=== PATIENT | male | born 1955 | race Caucasian/White ===

== ENCOUNTER 2018-04-06 05:18 | Day surgery (SDC) | payer BC ==
[~2018-04-06] VITALS: Ht 175.3 cm; Wt 90.3 kg
--- NOTE | ~2018-04-06 | PATH ---
[facility] [place] [address] PATHOLOGY RPT PROCEDURE Name: HOOD SAUCEDO Parisa Room #: DEP [facility]..#: [id number] Admission: 04/06/18 Date of : 51 Discharge: 04/06/18 Report #: [id number] Path Case #: [id number] [facility] Accession Number: [id number] . 01 Material submitted: . BASAL CELL CARCINOMA LT NASAL VESTIBULE-FS . 01 Clinical history: . BCCA nose . 02 Diagnosis: Skin, left nasal vestibule, biopsy: - Previous biopsy site changes. All surgical resection margins are free without any evidence of atypia or malignancy. (SHA:andrea; 04/09/2018) QMS/04/09/2018 . 02 Electronically signed: . Jules Sterling MD, Pathologist NPI- [id number] . 01 Gross description: . Specimen received fresh labeled "left nasal vestibule basal cell carcinoma" consists of a ch piece of tissue measuring 0.3 x 0.2 x 0.2 cm. It is oriented by Dr. Davey as superior, inferior, medial and lateral. The superior margin is inked red, the inferior margin is inked yellow, the medial margin is inked blue, the lateral margin is inked green and the deep is black. The specimen is serially sectioned and submitted in cassette A1. ([facility] 04/06/2018) . . FROZEN SECTION: FSA1: Skin left nasal vestibule: - Margins free. - These findings are discussed with Dr. Davey and a written report was placed in the patient's chart. ([facility] 04/06/2018) . Frozen section performed at [facility], [address] [place] [address] , [place] [address]. /QTP . 02 Pathologist provided ICD-10: C44.311 . 02 CPT . [address] [address] PATHOLOGY RPT PROCEDURE Name: HODO SAUCEDO Parisa Room #: DEP [facility] Ela#: [id number] Admission: 04/06/18 Date of : 51 Discharge: 04/06/18 Report #: [id number] Path Case #: [id number] Specimen Comment: A courtesy copy of this report has been sent to Specimen Comment: [phone], . Specimen Comment: Report sent to / DR COLLIER Performed at: [address] [facility] [address], [place], [place] [id number] MD Kan Kilgore MD Phone: [phone] Performed at: [address] [id number] MD Camila Galvan MD Phone: [phone]
--- NOTE | ~2018-04-06 | O ---
[facility] [place] [address] [place] [address] OPERATIVE REPORT Name: HOOD SAUCEDO Room #: 150-3 [facility]..#: [id number] Admission: 04/06/18 Attend Phys: Alexis Davey MD Discharge: Date of : 51 Report #: [id number] THIS REPORT FOR: //name// CC: Rafa Davey DATE OF SERVICE: 04/06/2018 PREOPERATIVE DIAGNOSIS: Left nasal vestibule basal cell carcinoma. POSTOPERATIVE DIAGNOSIS: Left nasal vestibule basal cell carcinoma. PROCEDURE: Reexcision of left basal cell carcinoma. SURGEON: Alexis Davey M.D. ANESTHESIA: General LMA with local anesthetic. FINDINGS: A very small scar was located on the floor of the left nasal vestibule extending up laterally. No visible changes to the cutaneous tissue. TECHNIQUE: After obtaining consent and identifying the area with the patient and preoperatively marking it with an ink pen, he was brought back to operating suite, appropriate time out was performed. General LMA anesthesia was obtained. The nose was prepped with Betadine with cotton swabs. I trimmed the nasal hairs back to the skin lining. A 1 mL of 1% Xylocaine and 1:100,000 epinephrine was injected subcutaneously around the anticipated area of the excision. I then made an elliptical incision around the scarred area being generous in the excisional area down to the subcutaneous layer. This was then sharply removed with scissors. The specimen was oriented for pathology. Frozen section returned negative for any cancer and he had negative margins. The area was then undermined slightly. I cauterized the base for hemostasis. I then closed the area with 2 simple interrupted 5-0 chromic sutures. Antibiotic ointment was applied. He was allowed to awaken from anesthesia and taken to recovery in stable condition. ESTIMATED BLOOD LOSS: Less than 5 mL. By: [id number] Alexis Davey MD /nt
[~2018-04-06 05:18] MED LIST: COQ-10100 MG PO; FISH OIL 1,2001 EAC4 PO; LISINOPRIL10 MG PO; NEURONTIN 300300 M1 PO; VITAMIN D5000 UNIT PO; ZOCOR20 MG PO
[2018-04-06 06:30] VITALS: BP 121/82
[2018-04-06 09:08] VITALS: BP 121/82
== END 2018-04-06 10:00 | disposition home or self-care (01) ==
LOC: TBA 05:18 → OR 05:18 → TBA 05:19 → OR 07:57
DX: L90.5 Scar conditions and fibrosis of skin (principal); J34.89 Other specified disorders of nose and nasal sinuses; I10 Essential (primary) hypertension; E78.5 Hyperlipidemia, unspecified; Z85.828 Personal history of other malignant neoplasm of skin; Z90.49 Acquired absence of other specified parts of digestive tract; Z98.890 Other specified postprocedural states; Z79.899 Other long term (current) drug therapy
CPT/HCPCS: 50010; 50101; 50386; 50398; 51636; 56526; 56527; 62110; 62900; 64037; 70005